=== PATIENT | male | born 1955 | race Caucasian/White ===

== ENCOUNTER 2016-08-07 09:12 | Emergency (ER) | payer OTHER ==
[~2016-08-07] VITALS: Ht 182.9 cm; Wt 93.0 kg
[2016-08-07 09:34] VITALS: BP 145/94
== END 2016-08-07 10:23 | disposition home or self-care (01) ==
LOC: ER 09:14
DX: S46.911A Strain of unspecified muscle, fascia and tendon at shoulder and upper arm level, right arm, initial encounter (principal); X50.0XXA Overexertion from strenuous movement or load, initial encounter; Y93.73 Activity, racquet and hand sports; Y99.8 Other external cause status; Y92.89 Other specified places as the place of occurrence of the external cause
CPT/HCPCS: 73030